=== PATIENT | male | born 1965 | race Asian ===

== ENCOUNTER 2017-10-22 22:23 | Emergency (ER) | payer SELFPAY ==
[2017-10-23 01:18] VITALS: BP 121/88
== END 2017-10-23 01:18 | disposition home or self-care (01) ==
LOC: ED 22:23
DX: R42 Dizziness and giddiness (principal); R11.0 Nausea; V89.2XXA Person injured in unspecified motor-vehicle accident, traffic, initial encounter; Y93.73 Activity, racquet and hand sports; Y92.488 Other paved roadways as the place of occurrence of the external cause; Y99.8 Other external cause status
CPT/HCPCS: J8597; Q0162